=== PATIENT | male | born 1950 | race Hispanic/Latino ===

== ENCOUNTER 2018-05-07 23:23 | Observation (INO) | payer OTHER ==
[~2018-05-07] VITALS: Ht 162.6 cm; Wt 87.1 kg
[2018-05-07 23:59] LABS: BASOPHILS % (AUTO) 0.6 % (0.0-5.0); EOSINOPHILS % (AUTO) 1.2 % (0.0-8.0); HEMATOCRIT 43.1 % (42-54); LYMPHOCYTES % (AUTO) 21.2 % (21.0-51.0); MEAN CORPUSCULAR HEMOGLOBIN 30.8 pg (27.0-33.0); MEAN CORPUSCULAR HGB CONC 33.9 g/dL (32.0-36.0); MEAN CORPUSCULAR VOLUME 90.9 fL (79-99); MONOCYTES % (AUTO) 7.4 % (3.0-13.0); NEUTROPHILS % (AUTO) 69.6 % (40.0-77.0); PLATELET COUNT (AUTO) 176 K/uL (130-400); RED BLOOD CELL COUNT(AUTO) 4.74 MIL/uL (4.50-6.20); RED CELL DISTRIBUTION WIDTH 13.6 % (11.0-15.5); WHITE BLOOD COUNT (AUTO) 8.7 K/uL (4.8-10.8)
[2018-05-08 00:12] LABS: CREATININE 1.1 mg/dL (0.5-1.5)
[2018-05-08 00:17] LABS: ALBUMIN 3.9 g/dL (3.5-5.0); BILIRUBIN,TOTAL 0.4 mg/dL (0.2-1.0); TOTAL PROTEIN, SERUM 8.1 g/dL (6.0-8.3)
[2018-05-08] MEDS ORDERED: NITROGLYCERIN 0.4 MG SL TAB SL ONE (00:35)
[2018-05-08] MEDS ORDERED: FAMOTIDINE/PF 20 MG/2 ML VIAL IV ONE (00:35)
[2018-05-08] MEDS ORDERED: ASPIRIN 325 MG TABLET ONE (00:35)
[2018-05-08 00:37] LABS: APPEARANCE,URINE Clear (CLEAR); BILIRUBIN,URINE Negative (NEGATIVE); COLOR,URINE Yellow (YELLOW); GLUCOSE, URINE (UA) Negative (NEGATIVE); KETONES,URINE Negative (NEGATIVE); LEUKOCYTE ESTERASE ,URINE Negative (NEGATIVE); NITRATE,URINE Negative (NEGATIVE); OCCULT BLOOD,URINE Negative (NEGATIVE); PROTEIN,URINE Negative (NEGATIVE); UROBILINOGEN,URINE 0.2 mg/dL (0.2-1.0)
[2018-05-08] MEDS ORDERED: ONDANSETRON HCL 4 MG/2 ML VIAL IV PRN (03:15)
[2018-05-08] MEDS ORDERED: NITROGLYCERIN 0.4 MG SL TAB SL PRN (03:15)
[2018-05-08] MEDS ORDERED: ACETAMINOPHEN 325 MG TAB PO PRN (03:15)
[2018-05-08] MEDS ORDERED: GLUCAGON 1MG KIT 1 MG ML IM PRN (05:00)
[2018-05-08] MEDS ORDERED: DEXTROSE 50%-WATER 50 ML DISP.SYRIN IV PRN (05:00)
[2018-05-08 05:28] LABS: EOSINOPHILS % (AUTO) 0.8 % (0.0-8.0); HEMATOCRIT 40.4 % (42-54); LYMPHOCYTES % (AUTO) 20.7 % (21.0-51.0); MEAN CORPUSCULAR HEMOGLOBIN 31.2 pg (27.0-33.0); MEAN CORPUSCULAR HGB CONC 34.4 g/dL (32.0-36.0); MEAN CORPUSCULAR VOLUME 90.7 fL (79-99); MONOCYTES % (AUTO) 6.7 % (3.0-13.0); NEUTROPHILS % (AUTO) 70.8 % (40.0-77.0); PLATELET COUNT (AUTO) 181 K/uL (130-400); RED BLOOD CELL COUNT(AUTO) 4.45 MIL/uL (4.50-6.20); RED CELL DISTRIBUTION WIDTH 13.8 % (11.0-15.5); WHITE BLOOD COUNT (AUTO) 8.1 K/uL (4.8-10.8)
[2018-05-08 05:35] LABS: HEMOGLOBIN A1C 6.1 % (4.0-6.0)
[2018-05-08 05:36] LABS: ALBUMIN 3.5 g/dL (3.5-5.0); BILIRUBIN,TOTAL 0.5 mg/dL (0.2-1.0); CREATININE 1.1 mg/dL (0.5-1.5); POTASSIUM 3.8 mmol/L (3.5-5.1); TOTAL PROTEIN, SERUM 7.4 g/dL (6.0-8.3)
[2018-05-08 05:46] LABS: CREATINE KINASE, TOTAL 224 U/L (21-232); MYOGLOBIN 62 ng/mL (10-92); TROPONIN I < 0.04 ng/mL (0.00-0.06)
[2018-05-08] MEDS: METOPROLOL TARTRATE 25 MG TAB PO SCH ×2 (09:00→21:42)
[2018-05-08] MEDS: PANTOPRAZOLE SODIUM 40 MG TABLET.DR PO SCH (09:00)
[2018-05-08] MEDS: ENOXAPARIN SODIUM 30 MG/0.3 ML SQ SCH (09:00)
[2018-05-08] MEDS: ASPIRIN 325 MG TABLET PO SCH (09:00)
[2018-05-08] MEDS ORDERED: METOPROLOL TARTRATE 25 MG TAB ONE (09:33)
[2018-05-08] MEDS ORDERED: ACETAMINOPHEN 325 MG TAB ONE (09:33)
[2018-05-08] MEDS ORDERED: PANTOPRAZOLE SODIUM 40 MG TABLET.DR PO ONE (09:33)
[2018-05-08] MEDS ORDERED: ENOXAPARIN SODIUM 30 MG/0.3 ML SQ ONE (09:33)
[2018-05-08 11:20] LABS: CREATINE KINASE, TOTAL 217 U/L (21-232); MYOGLOBIN 69 ng/mL (10-92); TROPONIN I < 0.04 ng/mL (0.00-0.06)
[2018-05-08 16:50] VITALS: BP 134/63
[2018-05-08] MEDS ORDERED: LISI1TAB9 PO (17:34)
[2018-05-08] MEDS ORDERED: ATOR20TA65 PO (17:34)
[2018-05-08 19:35] VITALS: BP 122/71
[2018-05-08] MEDS: INSULIN HUMULIN R 100 UNIT/ML 3ML SQ SCH (21:00)
[2018-05-08] MEDS: ATORVASTATIN CALCIUM 20 MG TABLET PO SCH (21:42)
[2018-05-08] MEDS: SODIUM CHLORIDE 0.9% 1000ML 1,000 ML IV SCH (21:45)
[2018-05-08 23:35] VITALS: BP 123/65
[2018-05-09 03:35] VITALS: BP 145/74
[2018-05-09 05:06] LABS: EOSINOPHILS % (AUTO) 5.2 % (0.0-8.0); HEMATOCRIT 40.5 % (42-54); LYMPHOCYTES % (AUTO) 31.9 % (21.0-51.0); MEAN CORPUSCULAR HEMOGLOBIN 29.9 pg (27.0-33.0); MEAN CORPUSCULAR HGB CONC 33.3 g/dL (32.0-36.0); MEAN CORPUSCULAR VOLUME 89.9 fL (79-99); MONOCYTES % (AUTO) 7.2 % (3.0-13.0); NEUTROPHILS % (AUTO) 54.7 % (40.0-77.0); NUCLEATED RED BLOOD CELLS 0.1 % (0.0-0.19); PLATELET COUNT (AUTO) 146 K/uL (130-400); RED BLOOD CELL COUNT(AUTO) 4.51 MIL/uL (4.50-6.20)
[2018-05-09] MEDS: INSULIN HUMULIN R 100 UNIT/ML 3ML SQ SCH ×4 (05:28→21:00)
[2018-05-09 05:35] LABS: ALBUMIN 3.1 g/dL (3.5-5.0); BILIRUBIN,TOTAL 0.8 mg/dL (0.2-1.0); CREATININE 1.3 mg/dL (0.5-1.5); POTASSIUM 3.6 mmol/L (3.5-5.1)
[2018-05-09 08:00] VITALS: BP 125/75
--- NOTE | 2018-05-09 08:00 | NUR ---
AM SHIFT ASSESSMENT. NPO FOR LEXISCAN.
[2018-05-09] MEDS: ASPIRIN 325 MG TABLET PO SCH ×2 (09:00→16:38)
[2018-05-09] MEDS: PANTOPRAZOLE SODIUM 40 MG TABLET.DR PO SCH ×2 (09:00→16:38)
[2018-05-09] MEDS: METOPROLOL TARTRATE 25 MG TAB PO SCH ×2 (09:00→16:38)
[2018-05-09] MEDS: ENOXAPARIN SODIUM 30 MG/0.3 ML SQ SCH ×2 (09:00→16:39)
[2018-05-09] MEDS: SODIUM CHLORIDE 0.9% 1000ML 1,000 ML IV SCH (09:06)
--- NOTE | 2018-05-09 10:47 | NUR ---
TO RAD. DEPT NOW FOR RAJEEV.
[2018-05-09] MEDS ORDERED: REGADENOSON 0.4 MG/5 ML PF SYG IVP SCH (11:30)
--- NOTE | 2018-05-09 12:34 | NUR ---
BACK FROM X-RAY DEPT. OK TO FEED PT. NOW, DIABETIC DIET ORDERED. WILL CONTINUE TO HOLD MEDS. UNTIL PROCEDURE IS COMPLETED. GOING BACK TO COMPLETE JOSE ANTONIO. IN APPROXIMATELY 1 HR.
[2018-05-09 13:03] VITALS: BP 130/73
--- NOTE | 2018-05-09 13:33 | NUR ---
2 D-ECHO NOW COMPLETE.
--- NOTE | 2018-05-09 13:50 | NUR ---
BACK TO RAD. DEPT TO COMPLETE LEXISCAN.
--- NOTE | 2018-05-09 14:17 | NUR ---
Status Case discussed with primary team. Intent was for OBS. Changed from IN to [facility]. Poss dc home if ST and 2D echo non-concerning. CD
[2018-05-09 16:00] VITALS: BP 124/69
--- NOTE | 2018-05-09 16:00 | NUR ---
STILL PENDING REPORTS ON 2 D-ECHO AND LEXISCAN. HAS NOT HAD ANY CHEST PAIN, ASKING IF HE WILL BE GOING HOME.
[2018-05-09 19:00] VITALS: BP 133/76
[2018-05-09] MEDS: ATORVASTATIN CALCIUM 20 MG TABLET PO SCH (21:38)
[2018-05-10 00:20] VITALS: BP 111/65
[2018-05-10 04:15] VITALS: BP 124/66
[2018-05-10 05:27] LABS: HEMATOCRIT 40.6 % (42-54); MEAN CORPUSCULAR HEMOGLOBIN 30.3 pg (27.0-33.0); MEAN CORPUSCULAR HGB CONC 33.4 g/dL (32.0-36.0); MEAN CORPUSCULAR VOLUME 90.7 fL (79-99); NUCLEATED RED BLOOD CELLS 0.1 % (0.0-0.19); PLATELET COUNT (AUTO) 148 K/uL (130-400); RED BLOOD CELL COUNT(AUTO) 4.47 MIL/uL (4.50-6.20); RED CELL DISTRIBUTION WIDTH 13.7 % (11.0-15.5); WHITE BLOOD COUNT (AUTO) 6.2 K/uL (4.8-10.8)
[2018-05-10 05:51] LABS: ALBUMIN 3.1 g/dL (3.5-5.0); BILIRUBIN,TOTAL 0.9 mg/dL (0.2-1.0); CREATININE 1.3 mg/dL (0.5-1.5); TOTAL PROTEIN, SERUM 6.9 g/dL (6.0-8.3)
[2018-05-10] MEDS: INSULIN HUMULIN R 100 UNIT/ML 3ML SQ SCH (06:44)
[2018-05-10 08:00] VITALS: BP 145/79
--- NOTE | 2018-05-10 08:00 | NUR ---
AM SHIFT ASSESSMENT. HAS NOT HAD ANY CP, FEELS GOOD,WAITING ON REPORTS FROM STUDIES DONE YESTERDAY.
[2018-05-10] MEDS: PANTOPRAZOLE SODIUM 40 MG TABLET.DR PO SCH (08:24)
[2018-05-10] MEDS: METOPROLOL TARTRATE 25 MG TAB PO SCH (08:25)
[2018-05-10] MEDS ORDERED: ASPIRIN 325 MG TABLET PO SCH (09:00)
[2018-05-10] MEDS ORDERED: ASPI-1012 PO (09:47)
[2018-05-10] MEDS ORDERED: METO25 PO (09:47)
--- NOTE | 2018-05-10 10:30 | NUR ---
DISCHARGE ORDERS IN PLACE.
[2018-05-10 12:00] VITALS: BP 117/71
--- NOTE | 2018-05-10 14:50 | NUR ---
DISCHARGED NOW USING TEACH BACK.PAPERS GIVEN BY CHARGE NURSE. VERBALIZES UNDERSTANDING OF ALL INST. GIVEN TELE MONITOR REMOVED AND SALINE LOCK REMOVED. TO PRIVATE CAR PER W/C. PER HOSP. POLICY.
== END 2018-05-10 15:00 | disposition home or self-care (01) ==
LOC: EDH 23:23 → EDHIP 05-08 02:30 → INTOOBSV 05-08 02:30 → 3AH 05-08 15:50
PROVIDERS: ADMIT Internal Medicine; ATTEND Internal Medicine
DX: M94.0 Chondrocostal junction syndrome [Tietze] (principal); R73.03 Prediabetes; E78.5 Hyperlipidemia, unspecified; I10 Essential (primary) hypertension; K29.70 Gastritis, unspecified, without bleeding; Z80.0 Family history of malignant neoplasm of digestive organs
CPT/HCPCS: 36415 ×4; 71045; 78452; 80053 ×4; 80061; 81003; 82550 ×3; 82948 ×8; 83036; 83690; 83874 ×2; 84484 ×3; 85025 ×3; 85027; 93005 ×4; 93017; 93306; 96360; 96361 ×2; 96372; 99284; A9500 ×2; G0378 ×60; J1650 ×3; J2785; J3490; 96374

== ENCOUNTER 2019-01-07 20:54 | Emergency (ER) | payer OTHER ==
[~2019-01-07 20:54] MED LIST: ASPI-1012 PO; ATOR20TA65 PO; LISI1TAB32 PO; METO25 PO
[2019-01-07] MEDS ORDERED: SODIUM CHLORIDE 0.9% 1000ML 1,000 ML IV ONE (21:32)
[2019-01-07] MEDS ORDERED: MECLIZINE HCL 25 MG TABLET ONE (21:33)
[2019-01-07 21:56] LABS: APPEARANCE,URINE Cloudy (CLEAR); BASOPHILS % (AUTO) 1.5 % (0.0-5.0); BILIRUBIN,URINE Negative (NEGATIVE); COLOR,URINE Yellow (YELLOW); EOSINOPHILS % (AUTO) 2.4 % (0.0-8.0); GLUCOSE, URINE (UA) Negative (NEGATIVE); HEMATOCRIT 40.4 % (42-54); KETONES,URINE Negative (NEGATIVE); LEUKOCYTE ESTERASE ,URINE Negative (NEGATIVE); LYMPHOCYTES % (AUTO) 24.1 % (21.0-51.0); MEAN CORPUSCULAR HGB CONC 33.9 g/dL (32.0-36.0); MEAN CORPUSCULAR VOLUME 91.5 fL (79-99); MONOCYTES % (AUTO) 6.4 % (3.0-13.0); NEUTROPHILS % (AUTO) 65.6 % (40.0-77.0); NITRATE,URINE Negative (NEGATIVE); OCCULT BLOOD,URINE Negative (NEGATIVE); PLATELET COUNT (AUTO) 154 K/uL (130-400); PROTEIN,URINE Negative (NEGATIVE); RED BLOOD CELL COUNT(AUTO) 4.42 MIL/uL (4.50-6.20); RED CELL DISTRIBUTION WIDTH 13.9 % (11.0-15.5); UROBILINOGEN,URINE 0.2 mg/dL (0.2-1.0); WHITE BLOOD COUNT (AUTO) 6.7 K/uL (4.8-10.8)
[2019-01-07 22:05] LABS: CREATININE 1.1 mg/dL (0.5-1.5); POTASSIUM 3.3 mmol/L (3.5-5.1)
[2019-01-07 22:06] LABS: RBC,URINE 0-1 /HPF (0-1); WBC,URINE 0-1 /HPF (0-1)
[2019-01-07 22:08] LABS: BACTERIA,URINE Rare /HPF (None Seen); SQUAMOUS EPITHELIAL CELL,UR Rare /HPF (0-2)
== END 2019-01-08 00:27 | disposition home or self-care (01) ==
LOC: EDH 20:54
DX: H81.399 Other peripheral vertigo, unspecified ear (principal); J01.90 Acute sinusitis, unspecified; I10 Essential (primary) hypertension; E78.5 Hyperlipidemia, unspecified
CPT/HCPCS: 36415; 70450; 80048; 81001; 84484; 85025; 93005; 96360; 96361; 99285; J7030